=== PATIENT | male | born 1975 | race Caucasian/White ===

== ENCOUNTER 2023-11-29 20:57 | Emergency (ER) | payer OTHER, SELFPAY ==
--- NOTE | 2023-11-29 | ECG_ITS ---
Test Reason : CHEST PAIN Blood Pressure : / mmHG Vent. Rate : 090 BPM Atrial Rate : 090 BPM P-R Int : 182 ms QRS Dur : 086 ms QT Int : 322 ms P-R-T Axes : 041 -08 -07 degrees QTc Int : 393 ms Normal sinus rhythm Minimal voltage criteria for LVH, may be normal variant ( R in aVL ) Borderline ECG No previous ECGs available Referred By: Generic ED Physician Electronically Signed By:OZZY DURAN
--- NOTE | ~2023-11-29 | XR_ITS ---
EXAMINATION: XR CHEST CLINICAL INFORMATION: Chest pain COMPARISON: None available. TECHNIQUE: Frontal view of the chest was obtained. FINDINGS: No significant abnormality is noted involving the heart, lungs, mediastinum, bony thorax or soft tissues. XR/XR chest 1V IMPRESSION: Unremarkable examination. Electronically signed by: Dustin Purcell MD 11/29/2023 11:06 PM EDT RP
[2023-11-29 21:10] VITALS: BP 154/94; PULSE 91; RESP 16; TEMP 37.2; O2SAT 98; BMI 29.5
[2023-11-29 21:42] LABS: MANUAL DIFF FLAG NO
[2023-11-29 21:43] LABS: Basophils Percent Auto 0.6 % (0-2); Eosinophils Absolute Auto 0.3 X10*3/uL (0.0-0.4); Eosinophils Percent Auto 4.8 % (0-4); Hemoglobin 11.2 g/dl (14.0-18.0); Imm Gran Abs Auto 0.05 X10*3/uL (0.00-0.03); Imm Gran Pct Auto 0.8 % (0.0-0.4); Lymphocytes Absolute Auto 1.5 X10*3/uL (1.2-4.9); Lymphocytes Percent Auto 24.2 % (20-40); Mean Corpuscular HGB Conc 33.9 g/dl (31.0-36.0); Mean Corpuscular Hemoglobin 29.2 pg (27.0-33.0); Mean Corpuscular Volume 86.2 fL (80.0-98.0); Mean Platelet Volume 9.3 fL (9.4-12.4); Monocytes Absolute Auto 0.5 X10*3/uL (0.1-1.2); Monocytes Percent Auto 8.3 % (2-11); Neutrophils Absolute Auto 3.9 x10*3/uL (2.0-8.3); Neutrophils Percent Auto 61.3 % (45-73); Platelet Count 421 X10*3/uL (160-400); Red Blood Count 3.83 X10*6/uL (4.60-5.80); Red Cell Distribution Width 13.3 % (11.0-16.0); White Blood Count 6.3 X10*3/uL (4.8-10.8)
[2023-11-29 21:49] LABS: Prothrombin Time 12.3 SEC (11.1-13.3)
--- NOTE | 2023-11-29 21:51 | ED.CHESTPAIN ---
HPI - Chest Pain General Chief Complaint: Chest Pain Stated Complaint: chest pain/heart rate up Time Seen by Provider: 11/29/23 21:41 Source: patient Mode of arrival: ambulatory Limitations: no limitations History of Present Illness ED Provider: Dr. Jaye Kim HPI narrative: Patient comes to the emergency room complaining of chest pain, intermittent palpitations. Patient states that about 4 days ago, he went to see his primary care physician for follow-up after an endoscopy/colonoscopy. Patient states that he has never had any health issues. However, during his colonoscopy, he had a polyp removed, patient became anemic and required 3 units of blood transfusion. Patient states that he has recovered well since then. However, since the colonoscopy, patient started experiencing heart racing along with shortness of breath, heart rate in the 240s and self-resolving. Patient states that in his last visit, when he was with his PCP, they were able to catch his heart rate in the 240s, with vagal maneuvers, his heart rate went back to sinus rhythm. Patient states that he was not told what rhythm it was. Patient was instructed to go home. However, they told him to return to emergency room if he had any ongoing issues. Patient states that over the last 3 days, he has had episodes of palpitations and heart racing but did not calm. Today, patient did not have the heart racing but he started having chest pain. Patient states it is on the left side of the chest, nonradiating. At this time, states that he feels a bit sore but no significant pain, no shortness of breath. Related Data Allergies Allergy/AdvReac Type Severity Reaction Status Date / Time Sulfa (Sulfonamide Allergy Hives Verified 11/29/23 21:13 Antibiotics) Review of Systems Review of Systems: Constitutional : No Weight loss, No Fever, No Chills, No Night Sweats, No Fatigue, No Malaise ENT/Mouth : No Hearing loss, No Ear Pain, No Nasal Congestion, No Sinus Pain, No Hoarseness, No sore throat, No Rhinorrhea, No Swallowing Difficulty Eyes: No Eye Pain, No Swelling, No Redness, No Foreign Body, No Discharge, No Vision Changes Cardiovascular : Complaining of mild chest discomfort that started about an hour ago, intermittent palpitations accompanied by shortness of breath, self resolving. Respiratory : No Cough, No Sputum, No Wheezing, No Smoke Exposure, No Dyspnea Gastrointestinal : No Nausea, No Vomiting, No Diarrhea, No Constipation, No abdominal Pain, No Hematochezia, No Melena Genitourinary : no irregular bleeding, No Dysuria, No Urinary Frequency, No Hematuria, No Urinary Incontinence, No Urgency, No Flank Pain, No Urinary Flow Changes, No Hesitancy Musculoskeletal : No joint pain, No Myalgias, No Joint Swelling Skin : No Skin Lesions, No rash Neuro : No Weakness, No Numbness, No Paresthesias, No Loss of Consciousness, No Dizziness, No Headache Psych : No Anxiety/Panic, No Depression, No SI/HI/AH/VH, No Social Issues, Heme/Lymph: No Bruising, No Bleeding,No Lymphadenopathy Endocrine : No Polyuria, No Polydipsia, No Temperature Intolerance [facility] Past Medical History 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 Oriented X3. No acute distress. Eyes: Pupils equal, round and reactive to light. ENT: Pharynx normal. Neck: Normal inspection. Neck supple. No lymph nodes noted. No crepitus CVS: Normal heart rate and rhythm. Pulses normal. Normal S1 and S2 Respiratory: No respiratory distress. Breath sounds normal. No Wheezing. No rales Abdomen: Soft and nontender. No rigidity. No distention. Skin: Skin warm and dry. Normal skin color. Normal skin turgor. Extremities: No lower extremity edema. No Lacerations. No Rash Neuro: Oriented X 3. No motor deficit. No sensory deficit. Moving all extremities. No slurred speech. CN 2 through 12 grossly intact Psych: calm, cooperative, normal affect Course Course Course Narrative: All of patient's labs and imaging pending Medical Decision Making Medical Decision Making MDM Narrative: My interpretation of EKG: Normal sinus rhythm, heart rate 90, no ST segment depression or elevation, nonspecific T-wave inversion in lead 3, QTC 393 -my interpretation of labs: Normal hematology and chemistry. Troponin negative. BNP negative. TSH elevated 18.84, free T4 0.69. -I discussed the TSH levels with the patient, he states that he is aware that he needs a higher dose of levothyroxine. Currently he takes 100 mcg, states that his PCP just sent him a prescription for 120 mcg but has not picked up his new from the pharmacy, which she will do today -I discussed with the patient that I believe he is going in and out of SVT. However, here in the ED we did not detect any arrhythmias. Patient will be referred to Cardiology, he will benefit from a Holter monitor evaluation. Differential Diagnosis Differential Diagnoses: The differential diagnosis associated with the presentation includes (SVT, atrial fibrillation, atrial flutter, tachycardia) Admission/Observation Consideration of admission/observation: Escalation of care including admission/observation considered (Given patient's symptoms, observation was considered) Lab Data [facility] Lab Attestation statement: I reviewed the patient's lab results. 11/29/23 21:23 11/29/23 21:23 Labs: Lab Results 11/29/23 Range/Units 21:23 WBC 6.3 (4.8-10.8) X10*3/uL RBC 3.83 L (4.60-5.80) X10*6/uL Hgb 11.2 L (14.0-18.0) g/dl Hct 33.0 L (42.0-52.0) % MCV 86.2 (80.0-98.0) fL MCH 29.2 (27.0-33.0) pg MCHC 33.9 (31.0-36.0) g/dl RDW 13.3 (11.0-16.0) % Plt Count 421 H (160-400) X10*3/uL MPV 9.3 L (9.4-12.4) fL Immature Gran % (Auto) 0.8 H (0.0-0.4) % Neut % (Auto) 61.3 (45-73) % Lymph % (Auto) 24.2 (20-40) % Kane % (Auto) 8.3 (2-11) % Eos % (Auto) 4.8 H (0-4) % Baso % (Auto) 0.6 (0-2) % Lymph # (Auto) 1.5 (1.2-4.9) X10*3/uL Kane # (Auto) 0.5 (0.1-1.2) X10*3/uL Eos # (Auto) 0.3 (0.0-0.4) X10*3/uL Baso # (Auto) 0.0 (0.0-0.2) X10*3/uL Abs Immat Gran (auto) 0.05 H (0.00-0.03) X10*3/uL Absolute Neuts (auto) 3.9 (2.0-8.3) x10*3/uL Absolute Nucleated RBC 0.000 (0.0-0.012) X10*3/uL Nucleated RBC % (auto) 0.0 (0.0-0.2) /100WBC PT 12.3 (11.1-13.3) SEC INR 1.0 (0.9-1.1) Sodium 143 (135-145) mmol/L Potassium 3.9 (3.3-5.1) mmol/L Chloride 111 H (96-108) mmol/L Carbon Dioxide 26 (22-29) mmol/L Anion Gap 10 L (12-20) BUN 18 H (9-16) mg/dL Creatinine 1.12 (0.5-1.4) mg/dL Estim Creat Clear Calc 106.1 Estimated GFR > 60 Random Glucose 113 (60-115) mg/dL Calcium 8.7 (8.4-10.2) mg/dL Magnesium 2.1 (1.6-2.6) mg/dL Total Bilirubin 0.5 (0.0-1.0) mg/dL AST 16 (5-37) U/L ALT 22 (0-40) U/L Alkaline Phosphatase 35 L (39-117) U/L Troponin I High Sens 3.6 (<3.5-35.0) ng/L B-Natriuretic Peptide < 10 (<100) pg/mL Total Protein 6.0 L (6.5-8.0) g/dL Albumin 4.0 (3.5-5.0) g/dL TSH 18.84 H (0.32-4.0) uIU/mL Free T4 0.69 L (0.71-1.85) ng/dL Independent Interpretation I performed an independent interpretation of an: Plain X-Ray Radiology Impression Discussion of test interpretation with radiology: I have reviewed the radiologist's reading. Radiologist Impression: No significant abnormality is noted involving the heart, lungs, mediastinum, bony thorax or soft tissues. XR/XR chest 1V IMPRESSION: Unremarkable examination. Critical Care Time Critical Care Time Critical Care Time: Yes Total Critical Care Time: 35 Attestation: I have personally provided critical care time. Time includes review of lab data, radiology results, discussion with consultants, and monitoring for potential decompensation. Intervention performed as documented. Discharge Plan Discharge Clinical Impression: Atypical chest pain, Tachycardia Patient Disposition: Home, Self-Care Instructions: Chest Pain (ED), Atrial Tachycardia (ED) Additional Instructions: Please follow-up with your primary care physician tomorrow. If you have any worsening or new symptoms, please return to the emergency room or call [phone] Print Language: Tajik
[2023-11-29 22:06] LABS: Alanine Aminotransferase 22 U/L (0-40); Alkaline Phosphatase 35 U/L (39-117); Anion Gap 10 (12-20); Aspartate Amino Transferase 16 U/L (5-37); Bilirubin Total 0.5 mg/dL (0.0-1.0); Blood Urea Nitrogen 18 mg/dL (9-16); Calcium 8.7 mg/dL (8.4-10.2); Carbon Dioxide 26 mmol/L (22-29); Chloride 111 mmol/L (96-108); Creatinine Clr Calc Pharmacy 106.1; Estimated Glomerular Filt Rate > 60; Glucose Random 113 mg/dL (60-115); Magnesium 2.1 mg/dL (1.6-2.6); Potassium 3.9 mmol/L (3.3-5.1); Sodium 143 mmol/L (135-145)
[2023-11-29 22:07] LABS: Troponin-I High Sensitivity 3.6 ng/L (<3.5-35.0)
[2023-11-29 22:14] LABS: B Type Natriuretic Peptide < 10 pg/mL (<100)
[2023-11-29 22:27] LABS: TSH reflex Free T4 18.84 uIU/mL (0.32-4.0)
[2023-11-29 22:49] LABS: Free T4 (Free Thyroxine) 0.69 ng/dL (0.71-1.85)
[2023-11-30 01:30] VITALS: BP 127/87; PULSE 72; PULSE 77; RESP 18; TEMP 36.7; O2SAT 98
[2023-11-30 01:33] VITALS: BP 127/87; PULSE 77; RESP 18; TEMP 36.7; O2SAT 98
== END 2023-11-30 01:35 | disposition home or self-care (01) ==
PROVIDERS: Emergency Provider Emergency Medicine
DX: R07.89 Other chest pain (principal); R00.0 Tachycardia, unspecified; R06.02 Shortness of breath; E06.3 Autoimmune thyroiditis
CPT/HCPCS: 36415; 71045; 80053; 83735; 83880; 84439; 84443; 84484; 85025; 85610; 93005; 99283; 99285